=== PATIENT | female | born 1950 | race Caucasian/White ===

== ENCOUNTER → 2018-12-12 | Outpatient (CLI) | payer MEDICARE ==
--- NOTE | 2018-12-12 15:27 | US ---
EXAM DESCRIPTION: Soft Tissue,Extremity CLINICAL HISTORY: 68 years Female, M25.531 COMPARISON: None. TECHNIQUE: Targeted ultrasound of the anterolateral aspect of the right wrist was performed in the area of concern. Limited ultrasound of the same area of the left wrist was performed for comparison. FINDINGS: 0.6 x 0.4 x 0.9 cm mixed anechoic and hypoechoic area with no internal vascularity is identified in the right wrist along the anterolateral area. This most likely represents a ganglion cyst. MRI can be performed for further evaluation if clinically concerned. IMPRESSION: 0.6 x 0.4 x 0.9 cm mixed anechoic and hypoechoic area with no internal vascularity is identified in the right wrist along the anterolateral area. This most likely represents a ganglion cyst. MRI can be performed for further evaluation if clinically concerned. Electronically signed by: Maine Nam MD 12/12/2018 3:24 PM CDT
== END ==
LOC: US 15:00
PROVIDERS: ATTEND Family Medicine
DX: M25.531 Pain in right wrist (principal)

== ENCOUNTER → 2019-06-12 | Outpatient (CLI) | payer MEDICARE ==
--- NOTE | 2019-06-13 11:30 | MRI ---
EXAM DESCRIPTION: Knee,Left CLINICAL HISTORY: KNEE PAIN, left knee pain lateral side. COMPARISON: Knee radiograph 05/29/2019 TECHNIQUE: MRI of the left knee is performed with multiplanar multi sequence imaging, without intravenous contrast. FINDINGS: Bone and joint: Mild edema along the lateral tibial plateau peripherally. No acute fracture. Small knee joint effusion. Cartilage: Patchy grade 3 chondral thinning along the lateral knee compartment. 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 . Medial meniscus: Intact. Mild increased degenerative intrasubstance signal within the posterior horn and body without surfacing tear. Lateral meniscus: Complex tear of the anterior horn and body with extension to the anterior root insertion and mild lateral peripheral extrusion of the meniscus body. Anterior cruciate ligament: Intact Posterior cruciate ligament: Intact Medial collateral ligament: Intact Lateral collateral ligament: Intact Popliteus tendon: Intact Biceps femoris tendon: Intact Iliotibial band: Intact Medial and lateral retinaculum: Intact Extensor mechanism: The distal quadriceps tendon is intact. The patella tendon is intact. Soft tissues: An approximately 4 cm Kim's cyst is present. Fluid is also present within the semimembranosus bursa and pes anserine bursa. IMPRESSION: 1. Complex lateral meniscus tear. 2. Lateral knee compartment intermediate grade chondral loss with mild subcortical edema at the lateral tibial plateau. Small knee joint effusion. 3. Kim's cyst measuring 4 cm. 4. Mild medial knee semimembranosus and pes anserine bursitis. Electronically signed by: Antwan Narayan DO 06/13/2019 11:28 AM CDT
== END ==
LOC: MRI 13:00
PROVIDERS: ATTEND Family Medicine
DX: S83.282A Other tear of lateral meniscus, current injury, left knee, initial encounter (principal); M71.22 Synovial cyst of popliteal space [Baker], left knee; M70.52 Other bursitis of knee, left knee; M94.8X6 Other specified disorders of cartilage, lower leg